=== PATIENT | male | born 1945 | race Caucasian/White ===

== ENCOUNTER 2018-05-08 20:47 | Emergency (ER) | payer MEDICARE, BC ==
[2018-05-08 20:53] VITALS: BP 149/66
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
== END 2018-05-08 21:30 | disposition home or self-care (01) ==
LOC: DL.ED 20:47
DX: K22.4 Dyskinesia of esophagus (principal); I10 Essential (primary) hypertension; E78.00 Pure hypercholesterolemia, unspecified; Z91.030 Bee allergy status; Z79.82 Long term (current) use of aspirin; Z79.899 Other long term (current) drug therapy
CPT/HCPCS: 99283

== ENCOUNTER 2018-05-13 06:27 | Day surgery (SDC) | payer MEDICARE, BC ==
[~2018-05-13 06:27] MED LIST: Dextrose 5%-0.45% NaCl 1,000 ML IV SCH; Midazolam 1 MG/ML 2 ML SDV ONE; Sodium Chloride 0.9% 10 ML Syringe FLUSH PRN; fentaNYL 100 MCG/2 ML SDV ONE
[2018-05-13] MEDS ORDERED: fentaNYL 100 MCG/2 ML SDV IV ONE ×2 (07:24→07:25)
[2018-05-13] MEDS ORDERED: Midazolam 1 MG/ML 2 ML SDV IV ONE ×3 (07:26→07:28)
[2018-05-13 13:30] VITALS: BP 156/66
--- NOTE | 2018-05-13 14:00 | OR ---
DATE: 05/13/2018 PROCEDURES: Esophagogastroduodenoscopy, NBI, multiple pinch biopsies, and brush biopsy for cytology. INSTRUMENT USED: GIF-H180 Olympus video panendoscope. PREMEDICATIONS: No oral topical anesthesia used. Fentanyl 100 mcg intravenous and versed 2 mg intravenous. The procedure was done under pulse oximetry, BP recording, and diagnostic cardiac sonographer. INDICATION: The patient with previous gastric adenocarcinoma surgery with dysphagia for solids, alf, more pronounced recently. Esophagogastroduodenoscopy is performed for detection of any active erosive lesions, malignancy also under consideration, H. pylori status to be determined, esophageal dilatations if indicated, endoscopic hemostasis therapy if needed. PROCEDURE IN DETAIL: The scope was passed with relative ease. No upper esophageal lesions identified. Adequate visualization of the esophagus was made from proximal to distal areas. There were grade 4 erosive changes by [place] criteria. The folds noted in the distal esophagus were prominent and friable, numerous pinch biopsies were obtained. Fresh biopsy was obtained for cytology. NBI views were obtained, numerous pinch biopsies were obtained from prominent folds and sent for histopathology. No uphill or downhill esophageal varices. No Rosalind-Ritchie tear. The GE junction was found to be a bit narrow, but the tip of the scope was passed with ease to visualize the gastric mucosa. Gastric fundus examination by retroflexion showed numerous, diminutive, benign- appearing polyps. No proximal gastric varices noted. No gastric ulcer, malignant mass, or vascular ectasia identified. Duodenal bulb was unremarkable. Visualized second part of the duodenum was normal. Multiple pinch biopsies were taken from the distal and proximal gastric mucosa and sent for PyloriTek test for H. pylori and histopathology. Photographs were taken of the duodenal bulb, gastric antrum, fundus, and distal esophagus. No bleeding was noted from any of the visualized areas at the completion of examination. IMPRESSION: 1. Grade 4 gastroesophageal reflux disease. 2. Distal esophageal stricture. The patient tolerated the procedure well. [facility] /[id number]
== END 2018-05-13 10:15 | disposition home or self-care (01) ==
LOC: DL.ENDO 06:27
PROVIDERS: ATTEND Internal Medicine Gastroenterology
DX: K22.10 Ulcer of esophagus without bleeding (principal); E78.00 Pure hypercholesterolemia, unspecified; M19.90 Unspecified osteoarthritis, unspecified site; F41.1 Generalized anxiety disorder; Z91.030 Bee allergy status; Z98.84 Bariatric surgery status
CPT/HCPCS: 43239; 87077; J7042; J2250; J3010

== ENCOUNTER 2020-05-22 19:35 | Emergency (ER) | payer MEDICARE, BC ==
[2020-05-22 19:57] VITALS: BP 176/73; PULSE 75
[2020-05-22] MEDS ORDERED: Ketorolac 30 MG/ML SDV IVPUSH ONE (19:59)
[2020-05-22] MEDS ORDERED: Clindamycin Phosphate 900 MG in Sodium Chloride 0.9% 100 ML IV ONE (19:59)
--- NOTE | 2020-05-22 20:10 | EDM.PDOC ---
ED HPI GENERAL MEDICAL PROBLEM - General Chief Complaint: ENT Problem Stated Complaint: BAD TOOTH ON BOTTOM RIGHT JAW, SWOLLEN Time Seen by Provider: 05/22/20 19:59 Source of Information: Reports: Patient History Limitations: Reports: No Limitations - History of Present Illness INITIAL COMMENTS - FREE TEXT/NARRATIVE: right face swollen from bad tooth started Saturday and got worse today after roman catholic. been taking motrin but still hurts alot. - Related Data Allergies Allergy/AdvReac Type Severity Reaction Status Date / Time venom-honey bee Allergy Cannot Verified 05/22/20 19:52 [bee venom (honey bee)] Remember Home Meds: Home Meds Rosuvastatin [Crestor] 20 mg PO BEDTIME 08/17/15 [History] Chlorthalidone 12.5 mg PO DAILY 05/08/18 [History] Erythromycin/Ethanol [Erothromycin 2%] 1 applicful TOP DAILY 05/09/18 [History] Omeprazole 20 mg PO BID 07/16/18 [History] Amoxicillin/Clavulanate K [Augmentin 875-125 MG] 1 tab PO BID 7 Days #14 tablet 05/27/19 [Rx] Azithromycin [Zithromax] 500 mg PO DAILY 2 Days #2 tablet 05/27/19 [Rx] Past Medical History HEENT History: Reports: Allergic Rhinitis, Hard of Hearing, Impaired Vision Cardiovascular History: Reports: CAD, Heart Failure, High Cholesterol, Hypertension, Syncope, Other (See Below) Other Cardiovascular History: VARICOSE VEINS; DIASTOLIC DYSFUNCTION; RIGHT CAROTID BRUIT; VALVULAR HEART DISEASE Respiratory History: Reports: None Gastrointestinal History: Reports: Other (See Below) Other Gastrointestinal History: STAGE I ESOPHAGEAL CANCER Genitourinary History: Reports: Prostate Disorder Musculoskeletal History: Reports: Fracture, Other (See Below) Other Musculoskeletal History: ERYTHRASMA. CLOSED DISPLACED FRACTURE OF TRIQUETRUM OF LEFT WRIST, INITIAL ENOUNTER. ROTATOR CUFF REPAIR Neurological History: Reports: None Psychiatric History: Reports: Anxiety Endocrine/Metabolic History: Reports: Obesity/BMI 30+ Hematologic History: Reports: None Immunologic History: Reports: None Oncologic (Cancer) History: Reports: Basal Cell Carcinoma, Esophageal, Prostate, Other (See Below) Other Oncologic History: stomach Dermatologic History: Reports: Other (See Below) Other Dermatologic History: HX OF ERYTHRASMA - Infectious Disease History Infectious Disease History: Reports: Other (See Below) Other Infectious Disease History: DONT RECALL - Past Surgical History Head Surgeries/Procedures: Reports: None HEENT Surgical History: Reports: None Cardiovascular Surgical History: Reports: Varicose Respiratory Surgical History: Reports: None GI Surgical History: Reports: Colonoscopy, EGD, Other (See Below) Other GI Surgeries/Procedures: Stomach and esophageal surgery for CA. (2010) Male Surgical History: Reports: None Endocrine Surgical History: Reports: None Musculoskeletal Surgical History: Reports: Arthroscopic Knee, Knee Replacement, Shoulder Surgery Other Musculoskeletal Surgeries/Procedures:: total knee replacement left 2016 Oncologic Surgical History: Reports: None Dermatological Surgical History: Reports: Skin Biopsy Social & Family History - Family History Family Medical History: Noncontributory - Tobacco Use Smoking Status *Q: Former Smoker Used Tobacco, but Quit: Yes Month/Year Tobacco Last Used: 20 years ago - Caffeine Use Caffeine Use: Reports: Coffee, Soda Caffeine Use Comment: 3 cups a day - Alcohol Use Days Per Week of Alcohol Use: 7 Number of Drinks Per Day: 4 Total Drinks Per Week: 28 - Recreational Drug Use Recreational Drug Use: No ED ROS ENT - Review of Systems Review Of Systems: Comprehensive ROS is negative, except as noted in HPI. ED EXAM, ENT - Physical Exam Exam: See Below Exam Limited By: No Limitations General Appearance: Alert, WD/WN, Mild Distress, Other (discomfort) Ears: Hearing Grossly Normal Mouth/Throat: Dental Abcess, Dental Pain, Dental Tenderness, Other (right lower jaw) Head: Atraumatic Neck: Non-Tender, Full Range of Motion Respiratory/Chest: No Respiratory Distress Cardiovascular: Regular Rate, Rhythm GI/Abdominal: Soft, Non-Tender (Male) Exam: Deferred Rectal (Males) Exam: Deferred Neurological: Alert, Oriented, Normal Cognition, Normal Gait, No Motor/Sensory Deficits Psychiatric: Normal Affect, Normal Mood Skin: Warm, Dry, Normal Color Lymphatic: No Adenopathy Course - Vital Signs Last Recorded V/S: Last Vital Signs Temp 36.3 C 05/22/20 19:56 Pulse 75 05/22/20 19:56 Resp 16 05/22/20 19:56 BP 176/73 H 05/22/20 19:56 Pulse Ox 97 05/22/20 19:56 - Orders/Labs/Meds Meds: Medications Discontinued Medications Generic Name Dose Route Start Last Admin Trade Name Freq PRN Reason Stop Dose Admin Clindamycin Phosphate 900 mg/ 106 mls @ 200 mls/hr 05/22/20 19:59 05/22/20 20:21 Sodium Chloride IV 05/22/20 20:30 200 mls/hr ONETIME ONE Administration Ketorolac Tromethamine 30 mg 05/22/20 19:59 05/22/20 20:20 Toradol IVPUSH 05/22/20 20:00 30 mg ONETIME ONE Administration Departure - Departure Time of Disposition: 20:57 Disposition: Home, Self-Care 01 Condition: Good Clinical Impression: Dental abscess, Dental caries - Discharge Information Instructions: Dental Abscess, [id number] Forms: ED Department Discharge Additional Instructions: 1) try hot compress to swollen area 2) avoid solid foods 3) see DENTIST IN MORNING for tooth abscess rx given; clindamycin 300mg qid x 40 vicodin 5/325mg tid prn x 12 Sepsis Event Note (ED) - Evaluation Sepsis Screening Result: No Definite Risk - Focused Exam Vital Signs: Vital Signs Temp Pulse Resp BP Pulse Ox 05/22/20 19:56 36.3 C 75 16 176/73 H 97
== END 2020-05-22 20:59 | disposition home or self-care (01) ==
LOC: DL.ED 19:45
DX: K04.7 Periapical abscess without sinus (principal); K02.9 Dental caries, unspecified; I11.0 Hypertensive heart disease with heart failure; I50.9 Heart failure, unspecified; I25.10 Atherosclerotic heart disease of native coronary artery without angina pectoris; E66.9 Obesity, unspecified; Z68.33 Body mass index [BMI] 33.0-33.9, adult; Z87.891 Personal history of nicotine dependence; Z91.030 Bee allergy status; Z79.899 Other long term (current) drug therapy
CPT/HCPCS: 96365; 96375; 99283; J1885; J3490; J7050

== ENCOUNTER 2020-10-03 05:23 | Day surgery (SDC) | payer MEDICARE, BC ==
[2020-10-03] MEDS ORDERED: fentaNYL 100 MCG/2 ML SDV IV ONE ×3 (05:24→06:36)
[2020-10-03] MEDS ORDERED: Midazolam 1 MG/ML 2 ML SDV IV ONE ×3 (05:24→06:37)
[2020-10-03] MEDS ORDERED: Dextrose 5%-0.45% NaCl 1,000 ML IV SCH (05:30)
[2020-10-03] MEDS ORDERED: Sodium Chloride 0.9% 10 ML Syringe FLUSH PRN (05:30)
[2020-10-03] MEDS ORDERED: Midazolam 1 MG/ML 2 ML SDV ONE (06:10)
[2020-10-03] MEDS ORDERED: fentaNYL 100 MCG/2 ML SDV ONE (06:10)
--- NOTE | 2020-10-03 07:41 | OR ---
DATE: 10/03/2020 PROCEDURE: Esophagogastroduodenoscopy and multiple pinch biopsies. INSTRUMENT USED: GIF-HQ190 Olympus video panendoscope. PREMEDICATIONS: No oral or topical anesthesia used. Fentanyl 100 mcg intravenous, Versed 2 mg intravenous. Nasal O2 cannula. The procedure was done under pulse oximetry, BP recording, and cardiac rehabilitation specialist. INDICATION: The patient with previous proximal gastric adenocarcinoma surgery with persistent heartburn as well as coughing spells unexplained and not responsive to medical measures, high-dose PPI. Esophagogastroduodenoscopy is performed for detection of active erosive lesions, malignancy also under consideration, H pylori status to be determined, endoscopic hemostasis therapy if needed. DESCRIPTION OF PROCEDURE: The scope was passed with ease. Adequate visualization of the esophagus was made from proximal to distal areas. No upper esophageal lesions identified. No distal esophageal stricture. No uphill or downhill esophageal varices. No Rosalind-Ritchie tear. Grade A erosive changes were noted by [place] criteria. No esophageal polyp or tumor mass identified. Z-line was seen at around 30 cm distal to the oral verge, some prominent benign-appearing folds were noted, NBI views were obtained, multiple pinch biopsies were obtained and sent for histopathology. No proximal gastric varices noted. Gastric fundus examination by retroflexion showed multiple benign-appearing diminutive polyps. No gastric ulcer, malignant mass, or vascular ectasia identified. Duodenal bulb showed no ulcer. There was some deformity of the pyloric channel. Visualized 2nd part of the duodenum was unremarkable. Multiple pinch biopsies were taken from the gastric antrum and proximal body and sent for PyloriTek test for H pylori and histopathology. No bleeding was noted from any of the visualized areas at the completion of examination. Photographs were taken of the duodenal bulb, gastric antrum, fundus, and distal esophagus. IMPRESSION: 1. Grade A gastroesophageal reflux disease. 2. Diminutive gastric fundus polyps. The patient tolerated the procedure well. [facility] /[id number]
[2020-10-03 09:49] VITALS: BP 177/61; PULSE 57
== END 2020-10-03 08:54 | disposition home or self-care (01) ==
LOC: DL.ENDO 05:23
PROVIDERS: ATTEND Internal Medicine Gastroenterology
DX: K31.89 Other diseases of stomach and duodenum (principal); K22.10 Ulcer of esophagus without bleeding; K31.7 Polyp of stomach and duodenum; K21.9 Gastro-esophageal reflux disease without esophagitis; H91.90 Unspecified hearing loss, unspecified ear; E78.00 Pure hypercholesterolemia, unspecified; C61 Malignant neoplasm of prostate; U07.1 COVID-19; Z98.890 Other specified postprocedural states; Z79.899 Other long term (current) drug therapy; Z85.028 Personal history of other malignant neoplasm of stomach; Z87.891 Personal history of nicotine dependence
CPT/HCPCS: 87077; 88305; J2250; J3010; J7042

== ENCOUNTER 2021-02-08 10:24 | Emergency (ER) | payer MEDICARE, BC ==
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
[2021-02-08 10:34] VITALS: BP 150/64; PULSE 58
[2021-02-08 11:16] LABS: ANION GAP 10.8 mEq/L (7-13)
--- NOTE | 2021-02-08 11:52 | CT ---
EXAMINATION: Head wo Cont SEX: Male AGE: 75 years CLINICAL HISTORY: 75-year-old male suddenly off balance and dizziness (history subdural hematoma confirmed MRI exam 29 Jan 2012). No known recent trauma. INTERPRETATION: Generalized atrophy and microvascular ischemic changes. No sign of skull fracture, intracranial mass, hydrocephalus or acute bleed. 1. Symmetrically prominent cerebral cortical atrophy with associated atrophic changes of the cerebellum. 2. Microvascular ischemic changes involving the basal ganglia both cerebral hemispheres/parietal convexity on the right. 3. No new supratentorial or posterior fossa mass lesion (magna cisterna magna versus arachnoid cyst posterior fossa). 4. Deformity thick bony calvarium. Symmetric clear pneumatization of the paranasal and mastoid sinuses. 5. No no sign of acute intracerebral, intraventricular or subarachnoid bleed. Specifically, no abnormal extracerebral/intracranial epidural or subdural fluid collections i.e. no hematoma or hygroma.
== END 2021-02-08 12:06 | disposition home or self-care (01) ==
LOC: DL.ED 10:24
DX: R42 Dizziness and giddiness (principal); I25.10 Atherosclerotic heart disease of native coronary artery without angina pectoris; I11.0 Hypertensive heart disease with heart failure; I50.9 Heart failure, unspecified; E66.9 Obesity, unspecified; E78.00 Pure hypercholesterolemia, unspecified; Z91.030 Bee allergy status; Z87.891 Personal history of nicotine dependence; Z68.33 Body mass index [BMI] 33.0-33.9, adult
CPT/HCPCS: 36415; 70450; 80053; 83735; 85025; 93005; 93010; 99284; 99284-25

== ENCOUNTER 2023-01-24 11:14 | Emergency (ER) | payer MEDICARE, BC ==
[2023-01-24] MEDS ORDERED: Sodium Chloride 0.9% 10 ML Syringe FLUSH PRN (11:20)
[2023-01-24 11:46] LABS: BASOPHILS PERCENT AUTO 0.2 % (0.0-1.0); EOSINOPHILS PERCENT AUTO 0.9 % (1.0-3.0); HEMATOCRIT 42.9 % (40.0-54.0); HEMOGLOBIN 14.3 g/dL (14.0-18.0); LYMPHOCYTES PERCENT AUTO 23.6 % (20.5-50.1); MEAN CORPUSCULAR HEMOGLOBIN 32.8 pg (27.0-34.0); MEAN CORPUSCULAR HGB CONC 33.3 g/dL (33.0-35.0); MEAN CORPUSCULAR VOLUME 98.4 fL (80-100); NEUTROPHILS PERCENT AUTO 63.3 % (42.2-75.2); PLATELET COUNT,PLT 162 10^3/uL (150-450); RED BLOOD CELL COUNT 4.36 10^6/uL (4.6-6.2); WHITE BLOOD CELL COUNT,WBC 5.8 10^3/uL (5.0-10.0)
[2023-01-24 12:00] LABS: PROTHROMBIN TIME 9.9 SEC (9.0-12.0)
[2023-01-24 12:08] LABS: ALANINE AMINOTRANSFERASE,ALT 20 U/L (16-63); ALBUMIN 3.8 g/dL (3.4-5.0); ALKALINE PHOSPHATASE 168 U/L (46-116); ANION GAP 10.3 mEq/L (7-13); ASPARTATE AMNIOTRANSFERASE,AST 15 U/L (15-37); BILIRUBIN TOTAL 0.8 mg/dL (0.2-1.0); BLOOD UREA NITROGEN,BUN 22 mg/dL (7-18); BUN/CREATININE RATIO 18.8 (No establ ref range); CALCIUM 8.8 mg/dL (8.5-10.1); CARBON DIOXIDE,CO2 32 mmol/L (21-32); CHLORIDE,CL 107 mmol/L (98-107); CREATININE 1.17 mg/dL (0.70-1.30); EST CRCL DRUG DOSING (CG) 58.96 mL/min; GLUCOSE RANDOM 104 mg/dL (70-99); MAGNESIUM 2.2 mg/dL (1.8-2.4); POTASSIUM,K 4.3 mmol/L (3.5-5.1); PROTEIN TOTAL,TP 7.5 g/dL (6.4-8.2); SODIUM,NA 145 mmol/L (136-145)
[2023-01-24 12:09] LABS: C-REACTIVE PROTEIN < 0.2 mg/dL (0.0-0.9); ESTIMATED GFR 65 mL/min (>=60); LACTIC ACID 0.9 mmol/L (0.4-2.0)
[2023-01-24 12:55] LABS: APPEARANCE,URINE CLEAR (CLEAR); BILIRUBIN,URINE NEGATIVE (NEGATIVE); COLOR,URINE YELLOW (YELLOW); GLUCOSE,URINE NEGATIVE (NEGATIVE); KETONES,URINE NEGATIVE (NEGATIVE); OCCULT BLOOD,URINE NEGATIVE (NEGATIVE); PROTEIN,URINE NEGATIVE (NEGATIVE)
[2023-01-24 12:56] LABS: LEUKOCYTE ESTERASE,URINE NEGATIVE (NEGATIVE); NITRITE,URINE NEGATIVE (NEGATIVE)
[2023-01-24 13:00] VITALS: BP 129/71; PULSE 79
== END 2023-01-24 13:10 | disposition home or self-care (01) ==
LOC: DL.ED 11:14
DX: S01.01XA Laceration without foreign body of scalp, initial encounter (principal); R55 Syncope and collapse; I25.10 Atherosclerotic heart disease of native coronary artery without angina pectoris; I11.0 Hypertensive heart disease with heart failure; I50.9 Heart failure, unspecified; E78.00 Pure hypercholesterolemia, unspecified; E66.9 Obesity, unspecified; Z68.33 Body mass index [BMI] 33.0-33.9, adult; Z91.030 Bee allergy status; Z79.899 Other long term (current) drug therapy; Z86.16 Personal history of COVID-19; W18.09XA Striking against other object with subsequent fall, initial encounter
CPT/HCPCS: 12001; 36415; 70450; 72125; 80053; 81003; 82947; 83605; 83735; 84484; 85025; 85610; 86140; 87040; 93005; 93010; 99284; J3490

== ENCOUNTER 2023-05-26 15:32 | Emergency (ER) | payer MEDICARE, BC ==
[2023-05-26] MEDS ORDERED: Sodium Chloride 0.9% 10 ML Syringe FLUSH PRN (15:54)
[2023-05-26 16:01] LABS: APPEARANCE,URINE CLEAR (CLEAR); BILIRUBIN,URINE NEGATIVE (NEGATIVE); COLOR,URINE YELLOW (YELLOW); GLUCOSE,URINE NEGATIVE (NEGATIVE); KETONES,URINE NEGATIVE (NEGATIVE); LEUKOCYTE ESTERASE,URINE NEGATIVE (NEGATIVE); NITRITE,URINE NEGATIVE (NEGATIVE); OCCULT BLOOD,URINE NEGATIVE (NEGATIVE); PROTEIN,URINE NEGATIVE (NEGATIVE); UROBILINOGEN,URINE 0.2 mg/dL (0.2-1.0)
[2023-05-26 16:01] LABS: BASOPHILS PERCENT AUTO 0.2 % (0.0-1.0); EOSINOPHILS PERCENT AUTO 1.2 % (1.0-3.0); HEMATOCRIT 41.5 % (40.0-54.0); HEMOGLOBIN 13.8 g/dL (14.0-18.0); LYMPHOCYTES PERCENT AUTO 14.4 % (20.5-50.1); MEAN CORPUSCULAR HEMOGLOBIN 32.8 pg (27.0-34.0); MEAN CORPUSCULAR HGB CONC 33.3 g/dL (33.0-35.0); MEAN CORPUSCULAR VOLUME 98.6 fL (80-100); MONOCYTES PERCENT AUTO 12.7 % (2-8); NEUTROPHILS PERCENT AUTO 71.5 % (42.2-75.2); PLATELET COUNT,PLT 156 10^3/uL (150-450); RED BLOOD CELL COUNT 4.21 10^6/uL (4.6-6.2); WHITE BLOOD CELL COUNT,WBC 9.6 10^3/uL (5.0-10.0)
[2023-05-26 16:21] LABS: LACTIC ACID 0.8 mmol/L (0.4-2.0)
[2023-05-26 16:28] LABS: A/G RATIO 0.9; ALANINE AMINOTRANSFERASE,ALT 11 U/L (16-63); ALBUMIN 3.5 g/dL (3.4-5.0); ALKALINE PHOSPHATASE 153 U/L (46-116); AMYLASE 54 U/L (25-115); ANION GAP 12.7 mEq/L (7-13); ASPARTATE AMNIOTRANSFERASE,AST 13 U/L (15-37); BLOOD UREA NITROGEN,BUN 20 mg/dL (7-18); BUN/CREATININE RATIO 15.9 (No establ ref range); C-REACTIVE PROTEIN 11.02 ng/dL (<=0.30); CALCIUM 8.6 mg/dL (8.5-10.1); CARBON DIOXIDE,CO2 29 mmol/L (21-32); CHLORIDE,CL 103 mmol/L (98-107); CREATININE 1.26 mg/dL (0.70-1.30); EST CRCL DRUG DOSING (CG) 56.37 mL/min; GLUCOSE RANDOM 85 mg/dL (70-99); LIPASE 36 U/L (16-77); POTASSIUM,K 3.7 mmol/L (3.5-5.1); PROTEIN TOTAL,TP 7.3 g/dL (6.4-8.2); SODIUM,NA 141 mmol/L (136-145)
[2023-05-26 16:30] LABS: ESTIMATED GFR 59 mL/min (>=60); ETHANOL BLOOD MEDICAL < 3 mg/dL (0)
[2023-05-26] MEDS ORDERED: Sodium Chloride 0.9% 1,000 ML IV ONE (16:32)
[2023-05-26] MEDS ORDERED: Iopamidol 755 Mg/ML 100 ML Bottle IVPUSH ONE (16:32)
[2023-05-26 16:39] LABS: PROTHROMBIN TIME 9.9 SEC (9.0-12.0); PTT,PARTIAL THROMBOPLSTIN TIME 28.2 SEC (22.0-34.0)
[2023-05-26 17:35] VITALS: BP 159/66; PULSE 66
[2023-05-26] MEDS ORDERED: Piperacillin/Tazobactam 3.375 GM in Sodium Chloride 0.9% 100 ML IV ONE (18:32)
== END 2023-05-26 19:04 ==
LOC: DL.ED 15:32
DX: K35.80 Unspecified acute appendicitis (principal); R33.9 Retention of urine, unspecified; I25.10 Atherosclerotic heart disease of native coronary artery without angina pectoris; I11.0 Hypertensive heart disease with heart failure; I50.9 Heart failure, unspecified; E78.00 Pure hypercholesterolemia, unspecified; E66.9 Obesity, unspecified; Z86.16 Personal history of COVID-19; Z79.899 Other long term (current) drug therapy; Z88.7 Allergy status to serum and vaccine; Z68.31 Body mass index [BMI] 31.0-31.9, adult
CPT/HCPCS: 36415; 51702; 74177; 80053; 80307; 81003; 82150; 83605; 83690; 84145; 85025; 85610; 85730; 86140; 87040; 96361; 96365; 99284; 99285-25; J2543; J3490; J7030; Q9967